=== PATIENT | female | born 1965 | race Caucasian/White ===

== ENCOUNTER 2016-11-15 09:23 | Emergency (ER) | payer BC ==
[~2016-11-15] VITALS: Ht 165.1 cm; Wt 83.5 kg
[2016-11-15 11:39] VITALS: BP 136/86
== END 2016-11-15 11:39 | disposition home or self-care (01) ==
LOC: ED 09:23
DX: L03.115 Cellulitis of right lower limb (principal); Z90.710 Acquired absence of both cervix and uterus; E03.9 Hypothyroidism, unspecified; Z88.0 Allergy status to penicillin
CPT/HCPCS: J1885